=== PATIENT | female | born 1995 | race Caucasian/White ===

== ENCOUNTER 2016-06-27 22:19 | Emergency (ER) | payer OTHER ==
[~2016-06-27] VITALS: Ht 162.6 cm; Wt 75.0 kg
[~2016-06-27 22:19] MED LIST: NO HOME MEDICATIONS; PREDNISONE20 MG PO; TRIAMCINOLONE A15 G1 TP
[2016-06-27 22:23] VITALS: TEMP 97.7
[2016-06-27] MEDS ORDERED: ZITHROMAX 250M250 MG PO (23:35)
[2016-06-27] MEDS ORDERED: PREDNISONE20 MG PO (23:35)
[2016-06-27] MEDS ORDERED: NORCO 325 MG-51 TAB PO (23:35)
[2016-06-27 23:40] LABS: INFLUENZA B NEGATIVE
[2016-06-28 00:14] VITALS: BP 129/88; PULSE 100
== END 2016-06-28 00:15 | disposition home or self-care (01) ==
LOC: COL.ER 22:19
PROVIDERS: Emergency Medicine
DX: J20.9 Acute bronchitis, unspecified (principal); J45.909 Unspecified asthma, uncomplicated
CPT/HCPCS: J7512